=== PATIENT | female | born 1980 | race Caucasian/White ===

== ENCOUNTER 2019-10-15 14:53 | Outpatient (CLI) | payer OTHER, SELFPAY ==
--- NOTE | 2019-10-15 14:59 | US_ITS ---
WS: [id number] THYROID ULTRASOUND HISTORY: NONTOXIC GOITER/ENLARGED THYROID GLAND COMPARISON: None available. Right lobe: 5.0 cm x 1.6 cm x 1.0 cm. Volume: 4.1 cm3. Normal size gland. Hypoechoic nodule is well-circumscribed in the inferior thyroid measuring 7 x 4 x 1.0 cm. No increased vascularity. Left lobe: 4.8 cm x 1.2 cm x 1.1 cm. Volume: 3.3 cm3. Normal size and echotexture. No significant or dominant nodules are present. Isthmus: 0.4 cm. US/US thyroid [id number] IMPRESSION: 1. Indeterminate RIGHT thyroid nodule inferior pole. Recommend yearly thyroid ultrasound follow-up. 2. Negative LEFT thyroid.
== END 2019-10-15 14:54 | disposition home or self-care (01) ==
PROVIDERS: Family Provider Nurse Practitioner; PCP Nurse Practitioner; Visit Provider Nurse Practitioner Family
DX: E04.9 Nontoxic goiter, unspecified (principal)
CPT/HCPCS: 76536

== ENCOUNTER 2025-04-01 11:19 | Outpatient (CLI) | payer OTHER, SELFPAY ==
--- NOTE | 2025-04-01 | MM_ITS ---
WS: [id number] BILATERAL SCREENING DIGITAL TOMOSYNTHESIS MAMMOGRAM WITH CAD HISTORY: ANNUAL SCREENING COMPARISON: 04/17/2024, 05/31/2016 Bilateral CC and MLO views with tomosynthesis and synthetic mammography submitted. Computer aided detection analyzed. Breast composition: The breasts are extremely dense, which lowers the sensitivity of mammography. No suspicious masses, microcalcifications or architectural distortion. Calcifications in each breast. No new asymmetries. No distortion. MM/MM scr tomosynthesis [id number] IMPRESSION: BI-RADS: 2 - Benign FOLLOW UP: 1 Year Follow-up
--- NOTE | 2025-04-01 12:00 | XR_ITS ---
WS: [id number] Thoracic spine, AP view, 04/01/2025 Clinical Data: DORSALGIA Comparison: None. Findings: No compression fractures are seen. The disc heights are normal. There is a minimal dextroscoliosis of the midthoracic spine. There are cholecystectomy clips in the right upper quadrant. XR/XR thoracic spine 2V [id number] Impression: Minimal dextroscoliosis of the midthoracic spine.
--- NOTE | 2025-04-01 12:00 | XR_ITS ---
WS: [id number] Cervical spine, 5 views including both obliques, 04/01/2025 Clinical Data: HYPERTROPHY OF BREAST/DORSALGIA Comparison: None. Findings: No compression fractures are seen. The disc heights are normal. There is no prevertebral soft tissue swelling. The oblique images show no foraminal narrowing. The odontoid is unremarkable. The soft tissues of the neck and the lung apices are normal. XR/XR cervical spine 4-5V [id number] Impression: 1. Negative cervical spine. 2. Negative oblique images.
== END 2025-04-01 11:20 | disposition home or self-care (01) ==
PROVIDERS: PCP Nurse Practitioner Family; Visit Provider Nurse Practitioner Family
DX: Z12.31 Encounter for screening mammogram for malignant neoplasm of breast (principal); R92.1 Mammographic calcification found on diagnostic imaging of breast; R92.343 Mammographic extreme density, bilateral breasts
CPT/HCPCS: 72050; 72070; 77063; 77067